=== PATIENT | female | born 1940 | race Caucasian/White ===

== ENCOUNTER → 2018-12-14 | Outpatient (CLI) | payer MEDICARE ==
--- NOTE | 2018-12-14 11:30 | Diagnostic Imaging Report ---
PROCEDURE: US Thyroid. TECHNIQUE: Multiple real-time grayscale images were obtained of the thyroid in various projections. INDICATION: Multinodular goiter. COMPARISON: None available. FINDINGS: The right lobe of the thyroid gland measures 4.4 x 1.7 x 1.4 cm. A mixed cystic and solid nodule is identified within the superior pole of the right thyroid lobe measuring 0.6 x 0.5 x 0.5 cm. This demonstrates posterior acoustic enhancement. The left lobe of the thyroid gland measures 4.3 x 1.3 x 1.4 cm. Several nodules are identified within the left lobe of the thyroid gland. A solid hypoechoic 0.9 x 0.7 cm nodule is noted within the mid left thyroid lobe. This demonstrates ill-defined margins. This is wider than tall. Additional 0.8 x 0.6 cm ovoid hypoechoic nodule is seen within the inferior pole of the left thyroid lobe. Additional 0.8 x 0.7 cm hypoechoic ovoid nodule is seen within the inferior pole of the left thyroid nodule. Isthmus is unremarkable. IMPRESSION: Bilateral subcentimeter thyroid nodules as described above. Given that none of these nodules are greater than 1 cm and none display aggressive features, no definitive followup of these thyroid nodules is necessary. Dictated by: Dictated on workstation # [id number]
== END ==
LOC: RAD 09:39
PROVIDERS: ATTEND Otolaryngology Otolaryngology/Facial Plastic Surgery
DX: E04.2 Nontoxic multinodular goiter (principal)
CPT/HCPCS: 76536